=== PATIENT | female | born 1985 | race Hispanic/Latino ===

== ENCOUNTER 2016-08-20 16:05 | Outpatient (CLI) | payer BC ==
[2016-08-20 17:32] LABS: ALT (SGPT) 17 U/L (0-55); AST (SGOT) 13 U/L (5-34); Albumin 4.2 g/dL (3.5-5.0); Alkaline Phosphatase 98 U/L (40-150); Anion Gap 14 mmol/L (10-20); BUN (Urea Nitrogen) 10 mg/dL (7.0-18.7); Bilirubin, Total 0.9 mg/dL (0.2-1.2); Calc. Creatinine Clearance 0 mL/min (70-130); Carbon Dioxide 24 mmol/L (22-29); Chloride 107 mmol/L (98-107); Estimated GFR-MDRD 87; Globulin 3.6 g/dL (2.4-3.5); Glucose 91 mg/dL (70-105); Lipase 13 U/L (8-78); Potassium 3.6 mmol/L (3.5-5.1); Protein, Total 7.8 g/dL (6.0-8.3); Sodium 141 mmol/L (136-145)
== END 2016-08-20 16:06 ==
LOC: HPCALD 16:05
PROVIDERS: ATTEND Physician Assistant
DX: K21.9 Gastro-esophageal reflux disease without esophagitis (principal)
CPT/HCPCS: 36415; 80053; 83690; 86677

== ENCOUNTER 2016-09-01 17:01 | Outpatient (CLI) | payer BC | END 2016-09-01 17:02 | disposition home or self-care (01) | LOC: HPCALD 17:01 | PROVIDERS: ATTEND Family Medicine | DX: R10.2 Pelvic and perineal pain (principal) | CPT/HCPCS: 87480; 87491; 87510; 87591; 87660 ==

== ENCOUNTER 2016-09-04 14:29 | Outpatient (CLI) | payer BC ==
--- NOTE | 2016-09-04 20:41 | ULT ---
PELVIC ULTRASOUND WITH ENDOVAGINAL IMAGES 09/04/16 Ultrasonography of the pelvis was performed for evaluation of pelvic pain. Documentary images and wo rksheets were provided and reviewed. The uterus measures 7.1 x 4.0 x 4.7 cm. The endometrium is quite thick at 1.4 cm. A small Nabothian cyst is seen in the cervix measuring about 0.7 cm in size. The right ovary appears normal and is 2.9 cm long. Good vascular flow was present. The left ovary was 3.1 cm long and also has good flow. The re is a small 1 cm cyst or dominant follicle in the left ovary. No free fluid was noted in the cul-d e-sac. IMPRESSION: Endometrial thickening. POS: HOME
== END 2016-09-04 14:30 | disposition home or self-care (01) ==
LOC: BURULT 14:29
PROVIDERS: ATTEND Family Medicine
DX: R10.2 Pelvic and perineal pain (principal); R93.8 Abnormal findings on diagnostic imaging of other specified body structures
CPT/HCPCS: 76856

== ENCOUNTER 2016-09-21 10:09 | Outpatient (CLI) | payer BC | END 2016-09-21 10:10 | LOC: HPCALD 10:09 | PROVIDERS: ATTEND Family Medicine | DX: Z12.4 Encounter for screening for malignant neoplasm of cervix (principal); R10.2 Pelvic and perineal pain | CPT/HCPCS: 87491; 87591 ==

== ENCOUNTER 2016-11-06 21:06 | Emergency (ER) | payer BC, SELFPAY ==
[2016-11-06] MEDS ORDERED: Ondansetron HCl/PF 4 MG/2 ML Vial ONE (21:37)
[2016-11-06 21:42] LABS: Pregnancy Test - Urine (BHCG) POSITIVE (Negative); Pregu Control Background? CLEAR/WHITE (CLR/WHITE); Pregu Control Bar Appear? YES (CONTROL BAR); Specific Gravity 1.034 (1.002-1.036)
[2016-11-06 21:43] LABS: Blood, Urine Moderate (Negative); Clarity Slightly Cloudy (Clear); Glucose, Urine (Dipstick) Negative (Negative); Leukocyte Negative (Negative); Nitrite Negative (Negative); Protein, Urine (Dipstick) > or equal to 300 mg/dL (Neg-Trace)
[2016-11-06 21:45] LABS: Bilirubin Negative (Negative); Specific Gravity, Urine 1.034 (1.002-1.036)
[2016-11-06 21:48] LABS: #Basophils 0.1 thou/uL (0.0-0.2); #Lymphocytes 2.5 thou/uL (1.20-3.40); #Monocytes 0.8 thou/uL (0.11-0.59); #Neutrophils 14.3 thou/uL (1.40-6.50); %Basophils 0.5 % (0.0-1.0); %Lymphocytes 13.9 % (21.0-51.0); %Monocytes 4.7 % (0.0-10.0); %Neutrophils 80.9 % (42.0-75.0); Hemoglobin 16.7 g/dL (12.0-16.0); Mean Corpuscular HGB CONC 35.6 g/dL (32.0-36.0); Mean Corpuscular Hemoglobin 30.7 pg (27.0-31.0); Mean Corpuscular Volume 86.1 fl (81.0-99.0); Mean Platelet Volume 8.2 fL (7.4-10.4); Platelet Count 368 thou/uL (130-400); RBC Distribution Width 11.6 % (11.5-14.5); Red Blood Cell (RBC) Count 5.45 mill/uL (4.20-5.40); White Blood Cell (WBC) Count 17.7 thou/uL (4.8-10.8)
[2016-11-06 21:55] LABS: Bacteria/HPF 1+ HPF (None Seen); Other Microscopic Description 2+MUCUS
[2016-11-06 21:59] LABS: ALT (SGPT) 16 U/L (8-55); AST (SGOT) 14 U/L (5-34); Albumin 4.4 g/dL (3.5-5.0); Alkaline Phosphatase 88 U/L (40-150); Anion Gap 16 mmol/L (10-20); BUN (Urea Nitrogen) 10 mg/dL (7.0-18.7); Bilirubin, Total 1.7 mg/dL (0.2-1.2); Calc. Creatinine Clearance 0 mL/min (70-130); Calcium 9.4 mg/dL (7.8-10.44); Carbon Dioxide 19 mmol/L (22-29); Chloride 104 mmol/L (98-107); Estimated GFR-MDRD Greater than 90; Globulin 4.4 g/dL (2.4-3.5); Glucose 109 mg/dL (70-105); Lipase 6 U/L (8-78); Potassium 3.4 mmol/L (3.5-5.1); Protein, Total 8.8 g/dL (6.0-8.3); Sodium 136 mmol/L (136-145)
== END 2016-11-06 22:50 | disposition home or self-care (01) ==
LOC: BURERS 21:06
DX: O99.281 Endocrine, nutritional and metabolic diseases complicating pregnancy, first trimester (principal); E86.0 Dehydration; O21.8 Other vomiting complicating pregnancy
CPT/HCPCS: 80053; 81003; 81015; 81025; 83690; 85025; 87086; 94760; 96361; 96374; J2405

== ENCOUNTER 2018-01-17 16:05 | Emergency (ER) | payer BC, SELFPAY | END 2018-01-17 16:30 | disposition home or self-care (01) | LOC: BURERS 16:05 | DX: T78.3XXA Angioneurotic edema, initial encounter (principal); I10 Essential (primary) hypertension | CPT/HCPCS: 99283 ==

== ENCOUNTER 2018-10-18 22:18 | Emergency (ER) | payer BC ==
[2018-10-18] MEDS ORDERED: Ondansetron ODT 4 MG TAB ONE (22:33)
[2018-10-18 22:52] LABS: #Basophils 0.1 thou/uL (0.0-0.2); #Eosinphils 0.2 thou/uL (0.0-0.7); #Lymphocytes 4.7 thou/uL (1.20-3.40); #Neutrophils 7.5 thou/uL (1.40-6.50); %Basophils 0.5 % (0.0-1.0); %Eosinophils 1.5 % (0.0-10.0); %Lymphocytes 34.9 % (21.0-51.0); %Monocytes 7.4 % (0.0-10.0); %Neutrophils 55.8 % (42.0-75.0); Hemoglobin 14.3 g/dL (12.0-16.0); Mean Corpuscular HGB CONC 32.5 g/dL (32.0-36.0); Mean Corpuscular Hemoglobin 27.9 pg (27.0-31.0); Mean Platelet Volume 8.1 fL (7.4-10.4); Platelet Count 350 thou/uL (130-400); RBC Distribution Width 13.3 % (11.5-14.5); Red Blood Cell (RBC) Count 5.11 mill/uL (4.20-5.40); White Blood Cell (WBC) Count 13.5 thou/uL (4.8-10.8)
[2018-10-18 22:56] LABS: Pregnancy Test - Urine (BHCG) Negative (Negative); Pregu Control Background? CLEAR/WHITE (CLR/WHITE); Pregu Control Bar Appear? YES (CONTROL BAR)
[2018-10-18 23:08] LABS: ALT (SGPT) 17 U/L (8-55); AST (SGOT) 13 U/L (5-34); Albumin 4.3 g/dL (3.5-5.0); Alkaline Phosphatase 119 U/L (40-150); Anion Gap 15 mmol/L (10-20); BUN (Urea Nitrogen) 11 mg/dL (7.0-18.7); Bilirubin, Total 0.9 mg/dL (0.2-1.2); Calc. Creatinine Clearance 0 mL/min (70-130); Calcium 9.8 mg/dL (7.8-10.44); Carbon Dioxide 24 mmol/L (22-29); Chloride 105 mmol/L (98-107); Estimated GFR-MDRD Greater than 90; Globulin 3.9 g/dL (2.4-3.5); Glucose 101 mg/dL (70-105); Potassium 3.7 mmol/L (3.5-5.1); Protein, Total 8.2 g/dL (6.0-8.3); Sodium 140 mmol/L (136-145)
== END 2018-10-18 23:35 | disposition home or self-care (01) ==
LOC: BURERS 22:18
DX: R42 Dizziness and giddiness (principal)
CPT/HCPCS: 36415; 80053; 81025; 85025; 99284; Q0162

== ENCOUNTER 2019-02-20 20:04 | Emergency (ER) | payer BC ==
[2019-02-20] MEDS ORDERED: Ibuprofen 800 MG TAB ONE (20:49)
[2019-02-20] MEDS ORDERED: Cyclobenzaprine 10 MG TAB ONE (20:49)
--- NOTE | 2019-02-20 22:40 | RAD ---
XR Finger(s) Rt Min 2 View: 02/20/2019 8:36 PM CLINICAL INDICATION: Pain, injury COMPARISON: None. FINDINGS: Fracture:There is a mildly displaced, slightly comminuted, intra-articular fracture involving the dis evette aspect of the fourth digit middle phalanx, with overlying soft tissue swelling. Arthropathy:None of significance. Incidental findings:None of significance. IMPRESSION: Mildly comminuted and displaced, intra-articular fracture of the distal aspect of the fourth digit mi ddle phalanx.
== END 2019-02-20 21:05 | disposition home or self-care (01) ==
LOC: BURERS 20:04
DX: S62.624A Displaced fracture of middle phalanx of right ring finger, initial encounter for closed fracture (principal); I10 Essential (primary) hypertension; E03.9 Hypothyroidism, unspecified; V43.92XA Unspecified car occupant injured in collision with other type car in traffic accident, initial encounter

== ENCOUNTER 2022-03-04 08:02 | Outpatient (CLI) | payer BC | END 2022-03-04 08:03 | disposition home or self-care (01) | LOC: BURCT 08:02 | PROVIDERS: ATTEND Physician Assistant | DX: K01.1 Impacted teeth (principal) | CPT/HCPCS: 70486 ==

== ENCOUNTER 2024-01-24 02:03 | Emergency (ER) | payer OTHER ==
[2024-01-24] MEDS ORDERED: Ondansetron ODT 4 MG TAB ONE (02:28)
[2024-01-24] MEDS ORDERED: Sucralfate 1 GM TAB ONE (02:32)
[2024-01-24 02:53] LABS: #Basophils 0.1 thou/uL (0.0-0.2); #Lymphocytes 2.4 thou/uL (1.20-3.40); #Monocytes 0.7 thou/uL (0.11-0.59); #Neutrophils 16.6 thou/uL (1.40-6.50); %Basophils 0.4 % (0.0-1.0); %Eosinophils 0.2 % (0.0-10.0); %Lymphocytes 12.1 % (21.0-51.0); %Monocytes 3.6 % (0.0-10.0); %Neutrophils 83.7 % (42.0-75.0); Hematocrit 42.1 % (36.0-47.0); Hemoglobin 15.1 g/dL (12.0-16.0); Mean Corpuscular HGB CONC 35.8 g/dL (32.0-36.0); Mean Corpuscular Hemoglobin 30.1 pg (27.0-31.0); Platelet Count 358 10x3/uL (130-400); RBC Distribution Width 11.3 % (11.5-14.5); Red Blood Cell (RBC) Count 5.01 mill/uL (4.20-5.40); White Blood Cell (WBC) Count 19.9 10x3/uL (4.8-10.8)
[2024-01-24 03:15] LABS: ALT (SGPT) 20 U/L (8-55); AST (SGOT) 12 U/L (5-34); Albumin 3.7 g/dL (3.5-5.0); Alkaline Phosphatase 84 U/L (40-110); Anion Gap 15 mmol/L (10-20); BUN (Urea Nitrogen) 5 mg/dL (7.0-18.7); Bilirubin, Total 1.1 mg/dL (0.2-1.2); Calc. Creatinine Clearance 0 mL/min (70-130); Calcium 9.2 mg/dL (7.8-10.44); Carbon Dioxide 24 mmol/L (22-29); Chloride 103 mmol/L (98-107); Estimated GFR 118; Globulin 3.7 g/dL (2.4-3.5); Glucose 122 mg/dL (70-105); Lipase 10 U/L (8-78); Potassium 3.7 mmol/L (3.5-5.1); Protein, Total 7.4 g/dL (6.0-8.3); Sodium 138 mmol/L (136-145)
[2024-01-24 03:21] LABS: Troponin I Less than 0.010 ng/mL (< 0.028)
== END 2024-01-24 03:42 | disposition home or self-care (01) ==
LOC: BURERS 02:03
DX: K21.00 Gastro-esophageal reflux disease with esophagitis, without bleeding (principal)
CPT/HCPCS: 36415; 80053; 83690; 84484; 85025; 93005; Q0162

== ENCOUNTER 2024-05-15 20:15 | Emergency (ER) | payer OTHER ==
[2024-05-15] MEDS ORDERED: Ondansetron PF 4 MG/2 ML Vial ONE (20:39)
[2024-05-15] MEDS ORDERED: Pantoprazole 40 MG VIAL ONE (20:49)
[2024-05-15 21:01] LABS: Anion Gap 17 mmol/L (10-20); BUN (Urea Nitrogen) 4 mg/dL (7.0-18.7); Calc. Creatinine Clearance 0 mL/min (70-130); Calcium 9.5 mg/dL (7.8-10.44); Carbon Dioxide 19 mmol/L (22-29); Chloride 102 mmol/L (98-107); Estimated GFR 123; Glucose 104 mg/dL (70-105); Potassium 4.4 mmol/L (3.5-5.1); Sodium 134 mmol/L (136-145)
[2024-05-15 21:26] LABS: Bilirubin Large (Negative); Blood, Urine Trace (Negative); Clarity Clear (Clear); Glucose, Urine (Dipstick) Negative (Negative); Ketone, Urine > or equal to 80 mg/dL (Negative); Leukocyte Negative (Negative); Nitrite Negative (Negative); Protein, Urine (Dipstick) 30 mg/dL (Neg-Trace)
[2024-05-15 21:34] LABS: Bacteria/HPF 1+ HPF (None Seen); CAUTI Indications for Culture Dysuria,urgency,freq; Mucous/LPF 2+ LPF (<2+); WBC/HPF 0-3 HPF (0-3)
[2024-05-15 21:35] LABS: Urine Culture Reflex No No
== END 2024-05-15 22:36 | disposition home or self-care (01) ==
LOC: BURERS 20:15
DX: R11.10 Vomiting, unspecified (principal); E03.9 Hypothyroidism, unspecified
CPT/HCPCS: 80048; 81001; 96374; 96375; J2405; J2470

== ENCOUNTER 2024-12-18 11:29 | Emergency (ER) | payer OTHER ==
[2024-12-18 12:27] LABS: BHCG - Serum Negative (NEGATIVE); Pregs Control Background? CLEAR/WHITE (CLR/WHITE); Pregs Control Bar Appear? YES (CONTROL BAR)
[2024-12-18 12:29] LABS: #Basophils 0.1 thou/uL (0.0-0.2); #Eosinophils 0.0 thou/uL (0.0-0.7); #Lymphocytes 2.4 thou/uL (1.20-3.40); #Monocytes 0.8 thou/uL (0.11-0.59); #Neutrophils 12.3 thou/uL (1.40-6.50); %Basophils 0.8 % (0.0-1.0); %Eosinophils 0.2 % (0.0-10.0); %Lymphocytes 15.2 % (21.0-51.0); %Monocytes 5.0 % (0.0-10.0); %Neutrophils 78.7 % (42.0-75.0); Hematocrit 41.8 % (36.0-47.0); Hemoglobin 14.6 g/dL (12.0-16.0); Mean Corpuscular Hemoglobin 29.9 pg (27.0-31.0); Mean Corpuscular Volume 85.4 fl (78.0-98.0); Platelet Count 354 10x3/uL (130-400); Red Blood Cell (RBC) Count 4.89 mill/uL (4.20-5.40); White Blood Cell (WBC) Count 15.6 10x3/uL (4.8-10.8)
[2024-12-18 12:33] LABS: Glucose, Urine (Dipstick) Negative (Negative); Leukocyte Negative (Negative); Protein, Urine (Dipstick) Negative (Neg-Trace); Specific Gravity, Urine 1.020 (1.005-1.030)
[2024-12-18 12:37] LABS: ALT (SGPT) 15 U/L (Less than 34); AST (SGOT) 20 U/L (11-34); Albumin 3.6 g/dL (3.1-4.5); Alkaline Phosphatase 101 U/L (40-110); Anion Gap 16 mmol/L (10-20); BUN (Urea Nitrogen) 10 mg/dL (7.0-18.7); Bilirubin, Total 1.1 mg/dL (0.3-1.2); Calc. Creatinine Clearance 0 mL/min (70-130); Calcium 8.6 mg/dL (7.8-10.44); Carbon Dioxide 20 mmol/L (22-29); Chloride 106 mmol/L (98-107); Globulin 3.6 g/dL (2.4-3.5); Glucose 106 mg/dL (70-105); Lipase 11 U/L (8-78); Potassium 4.2 mmol/L (3.5-5.1); Sodium 138 mmol/L (136-145)
[2024-12-18 12:57] LABS: Bacteria/HPF Rare-Few HPF (None Seen); CAUTI Indications for Culture Pelvic or flank pain; RBC/HPF None Seen HPF (0-3); WBC/HPF 0-3 HPF (0-3)
[2024-12-18 12:58] LABS: Urine Culture Reflex No No
[2024-12-18] MEDS ORDERED: Amoxicillin/Potassium Clav 875 MG TAB ONE (13:33)
== END 2024-12-18 13:48 | disposition home or self-care (01) ==
LOC: BURERS 11:29
DX: K57.32 Diverticulitis of large intestine without perforation or abscess without bleeding (principal)
CPT/HCPCS: 74176; 80053; 81001; 83605; 83690; 84703; 85025; 96374; J2270